=== PATIENT | male | born 1970 | race African-American/Black ===

== ENCOUNTER 2016-12-05 20:06 | Emergency (ER) | payer OTHER ==
[~2016-12-05] VITALS: Ht 188 cm; Wt 103.0 kg
[2016-12-05 20:07] VITALS: BP 144/85; PULSE 72; RESP 16; TEMP 98.7; O2SAT 98
[2016-12-05] MEDS ORDERED: PERC5TAB12 PO (21:39)
[2016-12-05] MEDS ORDERED: oxyCODONE/ACETAMINOPHEN 5 MG/325 MG TAB PO ONE (21:45)
--- NOTE | 2016-12-05 21:47 | PD ---
HPI Chief Complaint: Injury Time Seen by Provider: 21:26 Travel History International Travel<30 days: No Contact w/Intl Traveler<30days: No Traveled to known affect area: No History of Present Illness HPI 46-year-old black male presents emergency Department with complaints of a possible left Achilles tendon rupture which occurred prior to arrival while playing basketball. He states he he had gone up to shoot a ball when he felt a sudden pop and severe pain in his left Achilles. Since then he has not been able to bear weight. Pain is exacerbated by attempting to move. Her is no alleviating symptoms. He denies any other injuries. PFSH Past Medical History Arthritis: Yes Asthma: Yes (CHILDHOOD) Autoimmune Disease: No Blood Disorders: No Heart Rhythm Problems: No Cancer: No Cardiac Catheterization: Yes Cardiovascular Problems: No High Cholesterol: Yes Chemotherapy: No Chest Pain: Yes Congestive Heart Failure: No COPD: Yes Cerebrovascular Accident: Yes (TIA) Coronary Artery Disease: Yes Diabetes: No Diminished Hearing: No Endocrine: No Genitourinary: No Headaches: No Hepatitis: No Hiatal Hernia: No Hypertension: Yes Immune Disorder: No Medical other: Yes (NECK PROBLEMS, HX NECK SURGERY) Musculoskeletal: Yes Neurologic: Yes Psychiatric: No Reproductive: No Respiratory: No Migraines: No Myocardial Infarction: No Radiation Therapy: No Seizures: No Sickle Cell Disease: No Thyroid Disease: No Tetanus Vaccination: > 5 Years Past Surgical History Abdominal Surgery: No AICD: No Arteriovenous Shunt: No Cardiac Surgery: No Coronary Artery Bypass Graft: No Ear Surgery: No Endocrine Surgery: No Eye Surgery: No Genitourinary Surgery: No Gynecologic Surgery: No Insulin Pump: No Joint Replacement: No Neurologic Surgery: Yes Oral Surgery: No Pacemaker: No Thoracic Surgery: No Other Surgery: Yes Family History Family Myocardial Infarction: Yes Social History Alcohol Use: No Tobacco Use: No Substance Use: No Allergies-Medications (Allergen,Severity, Reaction): Coded Allergies: No Known Allergies (Verified , 12/05/16) Reported Meds & Prescriptions Reported Meds & Active Scripts Active Percocet (Oxycodone-Acetaminophen) 5-325 mg Tab 1 Tab PO Q6H PRN Review of Systems General / Constitutional: No: Fever Eyes: No: Visual changes HENT: No: Headaches Cardiovascular: No: Chest Pain or Discomfort Respiratory: No: Shortness of Breath Gastrointestinal: No: Abdominal Pain Genitourinary: No: Dysuria Musculoskeletal: Positive: Myalgias, Arthralgias, Limited ROM, Weakness, Pain Skin: No Rash Neurologic: No: Weakness Psychiatric: No: Depression Endocrine: No: Polydipsia Hematologic/Lymphatic: No: Easy Bruising Physical Exam Narrative GENERAL: This is a well-nourished, well-developed patient, in no apparent distress. SKIN: No rashes, ecchymoses or lesions. Warm and dry. HEAD: Atraumatic. Normocephalic. EYES: PERRL, EOMI, no discharge or injection. No scleral icterus. EARS: Clear NOSE: Nasal turbinates appear normal. THROAT: Mucosa pink and moist. Airway patent. NECK: Trachea midline. supple, moves head freely. LUNGS: Clear to auscultation. CV: Regular in rhythm. ABDOMEN: Soft nontender. EXT: No clubbing cyanosis or edema. Patient's left leg is examined in the prone position. He has a negative Rojas test on the left and a positive on the right. Patient has a deficit at the Achilles tendon on the left just above the ankle. He has tenderness in the calf. He has intact sensation with good distal pulses. Data Data Last Documented VS Vital Signs Date Time Temp Pulse Resp B/P (MAP) Pulse Ox O2 Delivery O2 Flow Rate FiO2 12/05/16 20:07 98.7 72 16 144/85 (104) 98 Room Air Orders Orders Ice/Cold Pack (12/05/16 21:38) Splint Or Brace Apply/Monitor (12/05/16 21:38) Crutches (12/05/16 21:38) Oxycodone-Acetamin 5-325 Mg (Percocet (12/05/16 21:45) Ed Discharge Order (12/05/16 21:42) MDM Medical Decision Making Medical Screen Exam Complete: Yes Emergency Medical Condition: Yes Medical Record Reviewed: Yes Differential Diagnosis MDM: High Differential diagnoses: Fracture, sprain, strain, dislocation, contusion, neurovascular injury, Achilles tendon rupture Narrative Course Patient's given 2 Percocet 5 mg by mouth, posterior short leg splint with plantar flexion, crutches and ice pack. This is acute left Achilles tendon rupture Diagnosis Primary Impression: acute left Achilles tendon rupture Patient Instructions: General Instructions, Narcotic given in the ED Departure Forms: Tests/Procedures, Work Release Special Instructions: No work until released by orthopedics. Additional Instructions: Rest. Elevation. Ice packs for the next 3 days. Splint and crutches. No weight-bearing. Medications as directed. Contact her doctor in the morning to get a referral to a orthopedist. You have an [facility] insurance requiring referral to a [facility] orthopedist. Follow-up with an orthopedist in the next 3-5 days. Return to the ER if any problems Med/Other Pt SpecificInfo: Prescription(s) given Scripts Oxycodone-Acetaminophen (Percocet) 5-325 mg Tab 1 TAB PO Q6H Y for PAIN, #20 TAB 0 Refills Prov: Reena Palomares DO 12/05/16 Disposition: 01 DISCHARGE HOME Condition: Stable Deandre Torres Dec 05, 2016 21:47
[2016-12-12] MEDS ORDERED: ASPI81TA11 PO (06:32)
[2016-12-12] MEDS ORDERED: IBUP-232 PO (06:50)
[2016-12-12] MEDS ORDERED: HYDR-3366 PO (08:15)
[2016-12-12] MEDS ORDERED: CYCL1TAB29 PO (08:15)
[2016-12-12] MEDS ORDERED: WALKER WHEELS/F1 MIS (10:44)
== END 2016-12-05 22:43 | disposition home or self-care (01) ==
LOC: NEPK 20:06
DX: S93.492A Sprain of other ligament of left ankle, initial encounter (principal); J45.909 Unspecified asthma, uncomplicated; M19.90 Unspecified osteoarthritis, unspecified site; E78.00 Pure hypercholesterolemia, unspecified; J44.9 Chronic obstructive pulmonary disease, unspecified; I10 Essential (primary) hypertension; X50.1XXA Overexertion from prolonged static or awkward postures, initial encounter; Y93.67 Activity, basketball; Z86.73 Personal history of transient ischemic attack (TIA), and cerebral infarction without residual deficits
CPT/HCPCS: 29515; 99283; E0113

== ENCOUNTER → 2016-12-12 | Day surgery (SDC) | payer OTHER ==
[~2016-12-12] VITALS: Ht 185.4 cm; Wt 109.0 kg
[~2016-12-12] MED LIST: ACETAMINOPHEN 1000 MG/100 ML 100 ML IV ONE; ACETAMINOPHEN/HYDROcodone 325 MG/10 MG TAB PO PRN; ASPI81TA23 PO; CHLORHEXIDINE GLUCONATE 2 % 1 PACK (2 CLOTHS) TOPICAL PRN; CHLORHEXIDINE GLUCONATE 4% SOLN 120 ML BTL TOPICAL SCH; CYCL10TA PO; CYCLOBENZAPRINE HCL 10 MG TAB PO PRN; DEXAMETHASONE SOD PHOS 4 MG/ML VIAL IV ONE; DO NOT ADM ANY ANTICOAGULANT DRUGS PRN; GENTAMICIN SULFATE 80 MG/2 ML VIAL ONE; GLYCOPYRROLATE 1 MG/5 ML SYRINGE IV PUSH ONE; HYDR-3366 PO; IBUP-232 PO; INSULIN HUMAN REGULAR 1,000 UNITS/10 ML VIAL SQ PRN; LACTATED RINGER'S 1000 ML IV PRN; LIDOCAINE HCL 1% PF 5 ML AMPULE OTHER ONE; METOPROLOL TARTRATE 25 MG TAB PO PRN; MIDAZOLAM HCL 2 MG/2 ML VIAL IV ONE; MORPHINE SULFATE 4 MG/ML INJ IV PUSH PRN; NEOSTIGMINE 3 MG/3 ML SYR IV ONE; ONDANSETRON HCL 4 MG/2 ML VIAL IV ONE; ONDANSETRON HCL 4 MG/2 ML VIAL IVP PRN; PERC5TAB12 PO; PHENYLEPH/NS 1000 MCG/10 ML SYR IV ONE; POVIDONE IODINE 5% (ANTISEPSIS KIT) 4 APPLICATIONS EACH NARE PRN; PROPOFOL 200 MG/20 ML AMP IV ONE; Post-op Orders (for Pharmacy) MISC XX ONE; ROCURONIUM INJ 50 MG/5 ML SYRINGE IV PUSH ONE; SODIUM CHLORID 0.9% 500 ML IV PRN; VANCOMYCIN 1000 MG/NS 250 ML (for <70 kg) IV SCH; WALKER WHEELS/F1 MIS; ceFAZolin 2 GM PREMIX 50 ML IV SCH
--- NOTE | 2016-12-12 08:14 | PD.OP ---
cc: Suresh Baez MD Operative Report Date of Surgery: Dec 12, 2016 Preoperative Diagnosis: Left Achilles tendon rupture Postoperative Diagnosis: Procedure: Left Achilles tendon primary repair Anesthesia: Gen. Surgeon: Suresh Baez Media Relations Director(s): KYLEIGH Lambert PA-C The surgical procedure was assisted by my physician administrative assistant receptionist. My P.A. presence was necessary throughout this case for the manipulation and positioning of the surgical extremity. My P.A. was assisting me throughout the duration of this procedure. The skill set of a physician administrative assistant receptionist was medically necessary to complete this procedure. During the surgical case the renal technician was working at the back table and the physician administrative assistant receptionist was directly assisting me. Operation and Findings: Nader was seen and evaluated preoperatively. He is found to have a complete rupture of his Achilles tendon. Treatment options were discussed including surgical and nonsurgical options. Patient wished to proceed with surgical intervention. Informed consent was obtained after detailed discussion of the risk and benefits of both surgical and nonsurgical treatment. Operative site was marked. He is brought to operating. His given IV sedation and general anesthesia. He was placed in a prone position. He received IV antibiotics. Left leg was prepped with alcohol followed by Hibiclens and draped in usual sterile fashion. Timeout procedure was performed. Procedure began with a 4 inch incision over the lateral aspect of the Achilles tendon. Subcutaneous tissues dissected with Bovie. Care was taken to avoid injury to the sural nerve. The Achilles tendon sheath was opened. There was complete disruption of the Achilles tendon. There was approximately 3 inches of retraction of the proximal end of the tendon. Both ends of the tendon were identified. At this point a #1 Vicryl suture was placed into both ends of the Achilles tendon. Sutures were placed in a Krakw type fashion. The 2 sutures were now tied together bringing the ends of the Achilles tendon and contact. Additional [id number] sutures were placed around the periphery of the tendon. The tendon was stable with gentle range motion of the ankle. Incision was thoroughly irrigated. Subcutaneous tissues closed with 3-0 Vicryl and skin was closed with 3-0 nylon. Patient was placed into a well molded well-padded splint. He was awakened and transferred to recovery room stable condition. Suresh Baez MD Dec 12, 2016 08:14
[2016-12-12 09:57] VITALS: BP 119/83; PULSE 65; RESP 16; TEMP 97.7; O2SAT 99
--- NOTE | 2016-12-12 10:49 | HHI.FF ---
Face to Face Verification Diagnosis: (1) Achilles rupture, left Physical Therapy Gait training, Safety evaluation Left LE Weight Bearing: Non WB S/P Spinal Fusion: Gait training with walker Nursing Dressing Changes: Do not change dressing I have seen patient Nader Edwards on 12/12/16. My clinical findings support the need for the requested home health care services because: Limited ability to care for self I certify that my clinical findings support that this patient is homebound because: Post-op weakness Nelson Calderon Jr. Dec 12, 2016 10:49
== END | disposition home or self-care (01) ==
LOC: HSDC 05:28
PROVIDERS: ATTEND Orthopaedic Surgery Orthopaedic Trauma
DX: S86.012A Strain of left Achilles tendon, initial encounter (principal)
CPT/HCPCS: 01472; 27652; 97163; G8987; G8988; J0131; J0690; J1100; J1580; J2250; J2370; J2405; J2710; J3010; J3370; J7050; J7120